=== PATIENT | female | born 1960 | race Caucasian/White ===

== ENCOUNTER 2017-09-23 09:20 | Day surgery (SDC) | payer MEDICAID ==
[~2017-09-23 09:20] MED LIST: ALUM1POW3; ARIP5TAB4 PO; BUSP15TA12 PO; CYCL-1 PO; DOCU-148; EZET10TA14 PO; FENO145T38 PO; FERR325T28 PO; GABA-532 PO; HYDR-565 PO; INSU100V12 SQ; LEVO500T2 PO; METF10002 PO; MORP60TA PO; OMEP-50 PO; OXYC-658 PO; QUET25TA PO; SERT20OR6 PO; SITA25TA3 PO
[2017-09-23] MEDS ORDERED: LIDOcaine 2% 5ml jelly ONE (09:51)
== END 2017-09-23 12:14 | disposition home or self-care (01) ==
LOC: WOUND CARE 09:20
PROVIDERS: ATTEND Surgery
DX: E11.621 Type 2 diabetes mellitus with foot ulcer (principal); L97.421 Non-pressure chronic ulcer of left heel and midfoot limited to breakdown of skin; E11.69 Type 2 diabetes mellitus with other specified complication; M86.672 Other chronic osteomyelitis, left ankle and foot; E11.40 Type 2 diabetes mellitus with diabetic neuropathy, unspecified; I10 Essential (primary) hypertension; K21.9 Gastro-esophageal reflux disease without esophagitis; E78.00 Pure hypercholesterolemia, unspecified; I77.1 Stricture of artery; M19.90 Unspecified osteoarthritis, unspecified site; F41.9 Anxiety disorder, unspecified; F32.9 Major depressive disorder, single episode, unspecified; Z90.49 Acquired absence of other specified parts of digestive tract; Z79.4 Long term (current) use of insulin; Z79.84 Long term (current) use of oral hypoglycemic drugs; Z79.899 Other long term (current) drug therapy; Z87.891 Personal history of nicotine dependence; Z95.1 Presence of aortocoronary bypass graft
CPT/HCPCS: 11042; 36416; 82948; 97605; A6446

== ENCOUNTER 2017-10-01 09:00 | Outpatient (CLI) | payer MEDICAID ==
[2017-10-01] MEDS ORDERED: RIFA600V4 PO (13:59)
== END 2017-10-01 10:27 | disposition home or self-care (01) ==
LOC: WOUND CARE 09:00 → EDSTATUS 09:00 → WOUND CARE 10:27
PROVIDERS: ATTEND Surgery
DX: E11.621 Type 2 diabetes mellitus with foot ulcer (principal); L97.421 Non-pressure chronic ulcer of left heel and midfoot limited to breakdown of skin; E11.69 Type 2 diabetes mellitus with other specified complication; M86.672 Other chronic osteomyelitis, left ankle and foot; I10 Essential (primary) hypertension; K21.9 Gastro-esophageal reflux disease without esophagitis; E78.00 Pure hypercholesterolemia, unspecified; I77.1 Stricture of artery; E11.40 Type 2 diabetes mellitus with diabetic neuropathy, unspecified; M19.90 Unspecified osteoarthritis, unspecified site; I70.244 Atherosclerosis of native arteries of left leg with ulceration of heel and midfoot; F41.9 Anxiety disorder, unspecified; F32.9 Major depressive disorder, single episode, unspecified; Z90.49 Acquired absence of other specified parts of digestive tract; Z79.84 Long term (current) use of oral hypoglycemic drugs; Z79.4 Long term (current) use of insulin; Z87.891 Personal history of nicotine dependence; Z95.1 Presence of aortocoronary bypass graft
CPT/HCPCS: 36416; 82948; 97605; A6206; A6243; A6449; 99211

== ENCOUNTER 2017-10-01 10:27 | Emergency (ER) | payer MEDICAID ==
[~2017-10-01] VITALS: Ht 182.9 cm; Wt 136.0 kg
[2017-10-01] MEDS ORDERED: HYDROcodone/acetaminophen 10/325mg tab PO ONE (11:50)
[2017-10-01 12:05] LABS: BASOPHILS % (AUTO) 0.4 % (0-1); EOSINOPHILS # (AUTO) 0.2 X10'3 (0-0.9); EOSINOPHILS % (AUTO) 2.8 % (0-6); HEMATOCRIT 32.9 % (35.0-45.0); HEMOGLOBIN 10.6 g/dl (12.0-16.0); LYMPHOCYTES % (AUTO) 18.2 % (21-51); MEAN CORPUSCULAR HGB CONC 32.3 % (33.0-36.5); MEAN CORPUSCULAR VOLUME 77.5 FL (78-98); MEAN PLATELET VOLUME 10.2 FL (7.4-10.4); MONOCYTES # (AUTO) 0.4 X10'3 (0-0.9); MONOCYTES % (AUTO) 7.1 % (2-12); NEUTROPHILS # (AUTO) 4.1 X10'3 (1.8-7.7); NEUTROPHILS % (AUTO) 71.5 % (42-75); PLATELET COUNT 146 X10'3 (140-440); RED BLOOD COUNT 4.25 X10'6 (4.20-5.60); RED CELL DISTRIBUTION WIDTH 16.3 % (11.5-14.5); WHITE BLOOD COUNT 5.7 X10'3 (4.5-11.0)
[2017-10-01 12:16] LABS: PARTIAL THROMBOPLASTIN TIME 25 SECONDS (22-32); PROTHROMBIN TIME 10.2 SECONDS (9.0-12.0)
[2017-10-01 12:29] LABS: ALANINE AMINOTRANSFERASE 12 U/L (12-78); ALBUMIN 3.1 G/DL (3.4-5.0); ALBUMIN/GLOBULIN RATIO 0.8 (1.1-1.5); ALKALINE PHOSPHATASE 82 IU/L (46-116); ANION GAP 6 (8-16); ASPARTATE AMINO TRANSFERASE 8 U/L (10-37); BILIRUBIN,TOTAL 0.3 MG/DL (0.1-1.0); BLOOD UREA NITROGEN 13 MG/DL (7-18); BUN/CREATININE RATIO 10.5 (6.6-38.0); CALCIUM 8.8 MG/DL (8.5-10.1); CHLORIDE 102 MMOL/L (99-107); CREATININE 1.24 MG/DL (0.40-0.90); GLUCOSE 87 MG/DL (70-104); MAGNESIUM 1.7 MG/DL (1.5-2.4); POTASSIUM 4.7 MMOL/L (3.5-5.1); SODIUM 139 MMOL/L (135-145); TOTAL CARBON DIOXIDE 30.6 MMOL/L (24-32); eGFR 44 ML/MIN
[2017-10-01 12:52] LABS: URINE HCG NEGATIVE (NEG)
[2017-10-01 12:53] LABS: CLARITY,URINE SLIGHTLY CLOUDY (Clear); GLUCOSE, URINE NEGATIVE (Neg); KETONES,URINE TRACE mg/dl (Neg); LEUKOCYTE ESTERASE ,URINE NEGATIVE (Neg); NITRITES, URINE NEGATIVE (Neg); OCCULT BLOOD,URINE NEGATIVE (Neg); PH,URINE 5.5 (4.8-8.0); PROTEIN,URINE NEGATIVE (Neg)
[2017-10-01 13:01] LABS: UA COLLECTION TYPE NON-SPECIFIED
[2017-10-01 13:02] LABS: COLOR,URINE DARK YELLOW (Yellow)
[2017-10-01 13:07] LABS: BACTERIA,URINE 1+ /HPF (Neg); MUCUS STRANDS MODERATE /LPF (Neg); RBC,URINE NONE SEEN /HPF (0-2); SQUAMOUS EPITHELIAL CELL,UR MODERATE /LPF (FEW); WBC,URINE 0-4 /HPF (0-4)
[2017-10-01 13:08] LABS: CAL OXALATE CRYSTALS FEW /HPF (NEGATIVE)
[2017-10-01 13:41] VITALS: BP 121/72
[2017-10-01] MEDS ORDERED: rifampin inj. 600 MG in normal saline 100ml IV soln 100 ML IV SCH (13:50)
[2017-10-01] MEDS ORDERED: normal saline 1000ml 1,000 ML IV ONE (13:50)
[2017-10-01] MEDS ORDERED: rifampin inj. 600 MG in normal saline 100ml IV soln 100 ML IV ONE (13:56)
[2017-10-01] MEDS ORDERED: RIFA600V4 PO (13:59)
== END 2017-10-01 16:13 | disposition home or self-care (01) ==
LOC: ER 10:28
DX: E11.621 Type 2 diabetes mellitus with foot ulcer (principal); L97.429 Non-pressure chronic ulcer of left heel and midfoot with unspecified severity; E78.00 Pure hypercholesterolemia, unspecified; G89.29 Other chronic pain; I10 Essential (primary) hypertension; Z88.0 Allergy status to penicillin; Z88.8 Allergy status to other drugs, medicaments and biological substances; Z79.84 Long term (current) use of oral hypoglycemic drugs; Z79.899 Other long term (current) drug therapy; Z98.84 Bariatric surgery status
CPT/HCPCS: 36415; 71045; 80053; 81001; 81025; 83605; 83735; 84145; 85025; 85610; 85730; 87040; 93005; 96365; 99285; A6449; J3490; J7030

== ENCOUNTER 2017-10-03 11:05 | Outpatient (CLI) | payer MEDICAID ==
[~2017-10-03 11:05] MED LIST changes: +RIFA600V4 PO
== END 2017-10-03 12:30 | disposition home or self-care (01) ==
LOC: WOUND CARE 11:05
PROVIDERS: ATTEND Surgery
DX: E11.622 Type 2 diabetes mellitus with other skin ulcer (principal); L97.421 Non-pressure chronic ulcer of left heel and midfoot limited to breakdown of skin; I10 Essential (primary) hypertension; K21.9 Gastro-esophageal reflux disease without esophagitis; E11.69 Type 2 diabetes mellitus with other specified complication; M86.672 Other chronic osteomyelitis, left ankle and foot; E78.00 Pure hypercholesterolemia, unspecified; I77.1 Stricture of artery; E11.40 Type 2 diabetes mellitus with diabetic neuropathy, unspecified; M19.90 Unspecified osteoarthritis, unspecified site; F41.9 Anxiety disorder, unspecified; F32.9 Major depressive disorder, single episode, unspecified; Z79.4 Long term (current) use of insulin; Z79.84 Long term (current) use of oral hypoglycemic drugs; Z79.899 Other long term (current) drug therapy; Z90.49 Acquired absence of other specified parts of digestive tract; Z87.891 Personal history of nicotine dependence; Z95.1 Presence of aortocoronary bypass graft
CPT/HCPCS: 36416; 82948; 97605; A6206

== ENCOUNTER 2017-10-06 09:19 | Day surgery (SDC) | payer MEDICAID ==
[2017-10-06] MEDS ORDERED: LIDOcaine 2% 5ml jelly ONE (09:57)
== END 2017-10-06 10:56 | disposition home or self-care (01) ==
LOC: WOUND CARE 09:19
PROVIDERS: ATTEND Surgery
DX: E11.621 Type 2 diabetes mellitus with foot ulcer (principal); L97.421 Non-pressure chronic ulcer of left heel and midfoot limited to breakdown of skin; E11.69 Type 2 diabetes mellitus with other specified complication; M86.672 Other chronic osteomyelitis, left ankle and foot; E11.40 Type 2 diabetes mellitus with diabetic neuropathy, unspecified; I10 Essential (primary) hypertension; K21.9 Gastro-esophageal reflux disease without esophagitis; E78.00 Pure hypercholesterolemia, unspecified; I77.1 Stricture of artery; M19.90 Unspecified osteoarthritis, unspecified site; F41.9 Anxiety disorder, unspecified; F32.9 Major depressive disorder, single episode, unspecified; Z90.49 Acquired absence of other specified parts of digestive tract; Z79.84 Long term (current) use of oral hypoglycemic drugs; Z79.4 Long term (current) use of insulin; Z79.899 Other long term (current) drug therapy; Z87.891 Personal history of nicotine dependence; Z95.1 Presence of aortocoronary bypass graft
CPT/HCPCS: 36416; 82948; 97597; 97598; A6206

== ENCOUNTER 2017-10-13 08:43 | Day surgery (SDC) | payer MEDICAID ==
[~2017-10-13 08:43] MED LIST changes: -RIFA600V4 PO
[2017-10-13] MEDS ORDERED: LIDOcaine 2% 5ml jelly ONE (09:54)
== END 2017-10-13 11:38 | disposition home or self-care (01) ==
LOC: WOUND CARE 08:43
PROVIDERS: ATTEND Surgery
DX: E11.621 Type 2 diabetes mellitus with foot ulcer (principal); L97.421 Non-pressure chronic ulcer of left heel and midfoot limited to breakdown of skin; E11.69 Type 2 diabetes mellitus with other specified complication; M86.672 Other chronic osteomyelitis, left ankle and foot; E11.40 Type 2 diabetes mellitus with diabetic neuropathy, unspecified; I10 Essential (primary) hypertension; K21.9 Gastro-esophageal reflux disease without esophagitis; E78.00 Pure hypercholesterolemia, unspecified; I77.1 Stricture of artery; M19.90 Unspecified osteoarthritis, unspecified site; F41.9 Anxiety disorder, unspecified; F32.9 Major depressive disorder, single episode, unspecified; Z90.49 Acquired absence of other specified parts of digestive tract; Z79.4 Long term (current) use of insulin; Z79.84 Long term (current) use of oral hypoglycemic drugs; Z79.899 Other long term (current) drug therapy; Z87.891 Personal history of nicotine dependence; Z95.1 Presence of aortocoronary bypass graft
CPT/HCPCS: 11042; 11045; 36416; 82948; 87070; 87075; 87102; 97605; A6446; 87077

== ENCOUNTER 2017-10-20 09:10 | Day surgery (SDC) | payer MEDICAID ==
[2017-10-20] MEDS ORDERED: LIDOcaine 2% 5ml jelly ONE (10:07)
== END 2017-10-20 11:17 | disposition home or self-care (01) ==
LOC: WOUND CARE 09:10
PROVIDERS: ATTEND Surgery
DX: E11.621 Type 2 diabetes mellitus with foot ulcer (principal); L97.421 Non-pressure chronic ulcer of left heel and midfoot limited to breakdown of skin; E11.69 Type 2 diabetes mellitus with other specified complication; M86.672 Other chronic osteomyelitis, left ankle and foot; I10 Essential (primary) hypertension; K21.9 Gastro-esophageal reflux disease without esophagitis; E78.00 Pure hypercholesterolemia, unspecified; I77.1 Stricture of artery; E11.40 Type 2 diabetes mellitus with diabetic neuropathy, unspecified; M19.90 Unspecified osteoarthritis, unspecified site; F41.9 Anxiety disorder, unspecified; F32.9 Major depressive disorder, single episode, unspecified; Z90.49 Acquired absence of other specified parts of digestive tract; Z79.84 Long term (current) use of oral hypoglycemic drugs; Z79.4 Long term (current) use of insulin; Z79.899 Other long term (current) drug therapy; Z87.891 Personal history of nicotine dependence; Z95.1 Presence of aortocoronary bypass graft
CPT/HCPCS: 11045; 82948; 97605

== ENCOUNTER 2017-10-27 09:30 | Day surgery (SDC) | payer MEDICAID ==
[2017-10-27] MEDS ORDERED: LINE600T36 PO (16:14)
== END 2017-10-27 12:40 | disposition home or self-care (01) ==
LOC: WOUND CARE 09:30
PROVIDERS: ATTEND Surgery
DX: E11.621 Type 2 diabetes mellitus with foot ulcer (principal); L97.421 Non-pressure chronic ulcer of left heel and midfoot limited to breakdown of skin; E11.69 Type 2 diabetes mellitus with other specified complication; M86.672 Other chronic osteomyelitis, left ankle and foot; I10 Essential (primary) hypertension; K21.9 Gastro-esophageal reflux disease without esophagitis; E78.00 Pure hypercholesterolemia, unspecified; I77.1 Stricture of artery; E11.40 Type 2 diabetes mellitus with diabetic neuropathy, unspecified; M19.90 Unspecified osteoarthritis, unspecified site; F41.9 Anxiety disorder, unspecified; F32.9 Major depressive disorder, single episode, unspecified; Z90.49 Acquired absence of other specified parts of digestive tract; Z79.4 Long term (current) use of insulin; Z79.84 Long term (current) use of oral hypoglycemic drugs; Z79.899 Other long term (current) drug therapy; Z87.891 Personal history of nicotine dependence; Z95.1 Presence of aortocoronary bypass graft
CPT/HCPCS: 11042; 11045; 36416; 82948; A6446

== ENCOUNTER 2017-11-03 08:55 | Day surgery (SDC) | payer MEDICAID ==
[~2017-11-03 08:55] MED LIST changes: +LINE600T36 PO
[2017-11-03] MEDS ORDERED: LIDOcaine 2% 5ml jelly ONE (09:58)
== END 2017-11-03 11:10 | disposition home or self-care (01) ==
LOC: WOUND CARE 08:55
PROVIDERS: ATTEND Surgery
DX: E11.621 Type 2 diabetes mellitus with foot ulcer (principal); L97.421 Non-pressure chronic ulcer of left heel and midfoot limited to breakdown of skin; E11.69 Type 2 diabetes mellitus with other specified complication; M86.672 Other chronic osteomyelitis, left ankle and foot; I10 Essential (primary) hypertension; K21.9 Gastro-esophageal reflux disease without esophagitis; E78.00 Pure hypercholesterolemia, unspecified; I77.1 Stricture of artery; E11.40 Type 2 diabetes mellitus with diabetic neuropathy, unspecified; M19.90 Unspecified osteoarthritis, unspecified site; F41.9 Anxiety disorder, unspecified; F32.9 Major depressive disorder, single episode, unspecified; Z79.899 Other long term (current) drug therapy; Z90.49 Acquired absence of other specified parts of digestive tract; Z79.4 Long term (current) use of insulin; Z87.891 Personal history of nicotine dependence; Z95.1 Presence of aortocoronary bypass graft
CPT/HCPCS: 36416; 82948; 97605

== ENCOUNTER 2017-11-10 09:00 | Day surgery (SDC) | payer MEDICAID ==
[2017-11-10] MEDS ORDERED: LIDOcaine 2% 5ml jelly ONE (10:11)
== END 2017-11-10 11:38 | disposition home or self-care (01) ==
LOC: WOUND CARE 09:00
PROVIDERS: ATTEND Surgery
DX: E11.621 Type 2 diabetes mellitus with foot ulcer (principal); L97.421 Non-pressure chronic ulcer of left heel and midfoot limited to breakdown of skin; E11.69 Type 2 diabetes mellitus with other specified complication; M86.672 Other chronic osteomyelitis, left ankle and foot; I10 Essential (primary) hypertension; K21.9 Gastro-esophageal reflux disease without esophagitis; E78.00 Pure hypercholesterolemia, unspecified; I77.1 Stricture of artery; E11.40 Type 2 diabetes mellitus with diabetic neuropathy, unspecified; M19.90 Unspecified osteoarthritis, unspecified site; F41.9 Anxiety disorder, unspecified; F32.9 Major depressive disorder, single episode, unspecified; Z79.899 Other long term (current) drug therapy; Z90.49 Acquired absence of other specified parts of digestive tract; Z79.4 Long term (current) use of insulin; Z87.891 Personal history of nicotine dependence; Z95.1 Presence of aortocoronary bypass graft
CPT/HCPCS: 11042; 36416; 82948; 97605; A6446; A4456

== ENCOUNTER 2017-11-17 09:15 | Day surgery (SDC) | payer MEDICAID ==
[2017-11-17] MEDS ORDERED: LIDOcaine 2% 5ml jelly ONE (11:28)
[2017-11-17 12:08] LABS: HEMOGLOBIN A1C 6.3 % (4.5-6.2)
[2017-11-17 12:14] LABS: ALANINE AMINOTRANSFERASE 20 U/L (12-78); ALBUMIN 3.3 G/DL (3.4-5.0); ALBUMIN/GLOBULIN RATIO 0.9 (1.1-1.5); ALKALINE PHOSPHATASE 69 IU/L (46-116); ANION GAP 4 (8-16); ASPARTATE AMINO TRANSFERASE 22 U/L (10-37); BILIRUBIN,TOTAL 0.4 MG/DL (0.1-1.0); BLOOD UREA NITROGEN 14 MG/DL (7-18); BUN/CREATININE RATIO 13.2 (6.6-38.0); CALCIUM 8.6 MG/DL (8.5-10.1); CHLORIDE 105 MMOL/L (99-107); CREATININE 1.06 MG/DL (0.40-0.90); GLUCOSE 102 MG/DL (70-104); POTASSIUM 5.1 MMOL/L (3.5-5.1); SODIUM 141 MMOL/L (135-145); TOTAL CARBON DIOXIDE 32.1 MMOL/L (24-32); TOTAL PROTEIN 6.8 G/DL (6.4-8.2); eGFR 53 ML/MIN
[2017-11-17 12:54] LABS: BASOPHILS % (AUTO) 0.4 % (0-1); EOSINOPHILS # (AUTO) 0.1 X10'3 (0-0.9); EOSINOPHILS % (AUTO) 2.7 % (0-6); HEMATOCRIT 29.7 % (35.0-45.0); HEMOGLOBIN 9.9 g/dl (12.0-16.0); LYMPHOCYTES # (AUTO) 1.3 X10'3 (1.1-4.8); MEAN CORPUSCULAR HEMOGLOBIN 25.5 PG (27.0-31.0); MEAN CORPUSCULAR HGB CONC 33.3 % (33.0-36.5); MEAN CORPUSCULAR VOLUME 76.7 FL (78-98); MONOCYTES # (AUTO) 0.6 X10'3 (0-0.9); MONOCYTES % (AUTO) 11.8 % (2-12); NEUTROPHILS # (AUTO) 2.8 X10'3 (1.8-7.7); NEUTROPHILS % (AUTO) 57.1 % (42-75); PLATELET COUNT 64 X10'3 (140-440); RED BLOOD COUNT 3.88 X10'6 (4.20-5.60); RED CELL DISTRIBUTION WIDTH 16.2 % (11.5-14.5); WHITE BLOOD COUNT 4.8 X10'3 (4.5-11.0)
== END 2017-11-17 12:48 | disposition home or self-care (01) ==
LOC: WOUND CARE 09:15
PROVIDERS: ATTEND Surgery
DX: E11.621 Type 2 diabetes mellitus with foot ulcer (principal); L97.421 Non-pressure chronic ulcer of left heel and midfoot limited to breakdown of skin; E11.69 Type 2 diabetes mellitus with other specified complication; M86.672 Other chronic osteomyelitis, left ankle and foot; I10 Essential (primary) hypertension; K21.9 Gastro-esophageal reflux disease without esophagitis; E78.00 Pure hypercholesterolemia, unspecified; I77.1 Stricture of artery; E11.40 Type 2 diabetes mellitus with diabetic neuropathy, unspecified; M19.90 Unspecified osteoarthritis, unspecified site; F41.9 Anxiety disorder, unspecified; F32.9 Major depressive disorder, single episode, unspecified; Z79.899 Other long term (current) drug therapy; Z90.49 Acquired absence of other specified parts of digestive tract; Z79.4 Long term (current) use of insulin; Z87.891 Personal history of nicotine dependence; Z95.1 Presence of aortocoronary bypass graft
CPT/HCPCS: 15275; 15276; 36415; 36416; 80053; 82948; 83036; 85025; A6206; A6209; A6223; A6446; Q4106; A6250

== ENCOUNTER 2017-11-21 08:49 | Outpatient (CLI) | payer MEDICAID ==
[~2017-11-21 08:49] MED LIST changes: -LEVO500T2 PO
== END 2017-11-21 11:00 | disposition home or self-care (01) ==
LOC: WOUND CARE 08:49 → EDSTATUS 09:00 → WOUND CARE 11:00
PROVIDERS: ATTEND Surgery
DX: E11.621 Type 2 diabetes mellitus with foot ulcer (principal); L97.421 Non-pressure chronic ulcer of left heel and midfoot limited to breakdown of skin; E11.69 Type 2 diabetes mellitus with other specified complication; M86.672 Other chronic osteomyelitis, left ankle and foot; I10 Essential (primary) hypertension; K21.9 Gastro-esophageal reflux disease without esophagitis; E78.00 Pure hypercholesterolemia, unspecified; I77.1 Stricture of artery; E11.40 Type 2 diabetes mellitus with diabetic neuropathy, unspecified; M19.90 Unspecified osteoarthritis, unspecified site; F41.9 Anxiety disorder, unspecified; F32.9 Major depressive disorder, single episode, unspecified; Z79.899 Other long term (current) drug therapy; Z90.49 Acquired absence of other specified parts of digestive tract; Z79.4 Long term (current) use of insulin; Z87.891 Personal history of nicotine dependence; Z95.1 Presence of aortocoronary bypass graft
CPT/HCPCS: 36416; 82948; 97605; A6446

== ENCOUNTER 2017-11-24 08:47 | Day surgery (SDC) | payer MEDICAID ==
[2017-11-24] MEDS ORDERED: LIDOcaine 2% 5ml jelly ONE (09:52)
== END 2017-11-24 12:00 | disposition home or self-care (01) ==
LOC: WOUND CARE 08:47
PROVIDERS: ATTEND Surgery
DX: E11.621 Type 2 diabetes mellitus with foot ulcer (principal); L97.421 Non-pressure chronic ulcer of left heel and midfoot limited to breakdown of skin; E11.69 Type 2 diabetes mellitus with other specified complication; M86.672 Other chronic osteomyelitis, left ankle and foot; I10 Essential (primary) hypertension; K21.9 Gastro-esophageal reflux disease without esophagitis; E78.00 Pure hypercholesterolemia, unspecified; I77.1 Stricture of artery; E11.40 Type 2 diabetes mellitus with diabetic neuropathy, unspecified; M19.90 Unspecified osteoarthritis, unspecified site; F41.9 Anxiety disorder, unspecified; F32.9 Major depressive disorder, single episode, unspecified; Z79.899 Other long term (current) drug therapy; Z90.49 Acquired absence of other specified parts of digestive tract; Z79.4 Long term (current) use of insulin; Z87.891 Personal history of nicotine dependence; Z95.1 Presence of aortocoronary bypass graft
CPT/HCPCS: 10061; 36416; 82948; 87070; 87075; 87077; 87102; 87186; A6266; A6446

== ENCOUNTER 2017-12-01 09:09 | Outpatient (CLI) | payer MEDICAID ==
[2017-12-01] MEDS ORDERED: gadopentetate dimeglumine 7.5 MMOL/15 ML syringe ONE (10:59)
== END 2017-12-01 23:59 | disposition home or self-care (01) ==
LOC: RAD 09:09
PROVIDERS: ATTEND Internal Medicine
DX: L97.429 Non-pressure chronic ulcer of left heel and midfoot with unspecified severity (principal); M86.9 Osteomyelitis, unspecified; M79.605 Pain in left leg; R59.0 Localized enlarged lymph nodes
CPT/HCPCS: 73718; 93926; A9579

== ENCOUNTER 2018-04-28 18:37 | Emergency (ER) | payer MEDICAID ==
[~2018-04-28] VITALS: Ht 182.9 cm; Wt 115.9 kg
[~2018-04-28 18:37] MED LIST changes: -METF10002 PO; +METF10004 PO
[2018-04-28 20:07] VITALS: BP 198/89
== END 2018-04-28 20:09 | disposition home or self-care (01) ==
LOC: ER 18:38
DX: R19.7 Diarrhea, unspecified (principal); R11.0 Nausea; I10 Essential (primary) hypertension; E11.9 Type 2 diabetes mellitus without complications; G89.29 Other chronic pain; E78.00 Pure hypercholesterolemia, unspecified; M19.90 Unspecified osteoarthritis, unspecified site; Z88.1 Allergy status to other antibiotic agents; Z88.0 Allergy status to penicillin; Z88.6 Allergy status to analgesic agent; Z79.4 Long term (current) use of insulin; Z79.84 Long term (current) use of oral hypoglycemic drugs; Z79.899 Other long term (current) drug therapy
CPT/HCPCS: 99281

== ENCOUNTER 2019-02-22 13:59 | Emergency (ER) | payer MEDICAID ==
[~2019-02-22] VITALS: Ht 182.9 cm; Wt 147.7 kg
[~2019-02-22 13:59] MED LIST changes: +HYDR-4353 PO; -HYDR-565 PO; +METF-438 PO; -METF10004 PO
[2019-02-22 14:15] VITALS: BP 171/80
[2019-02-22 15:01] LABS: BASOPHILS # (AUTO) 0.1 X10'3 (0-0.2); BASOPHILS % (AUTO) 0.7 % (0-1); EOSINOPHILS # (AUTO) 0.1 X10'3 (0-0.9); EOSINOPHILS % (AUTO) 1.6 % (0-6); HEMATOCRIT 39.5 % (35.0-45.0); HEMOGLOBIN 13.1 g/dl (12.0-16.0); LYMPHOCYTES # (AUTO) 1.6 X10'3 (1.1-4.8); MEAN CORPUSCULAR HEMOGLOBIN 25.4 PG (27.0-31.0); MEAN PLATELET VOLUME 8.6 FL (7.4-10.4); MONOCYTES # (AUTO) 0.4 X10'3 (0-0.9); MONOCYTES % (AUTO) 6.1 % (2-12); NEUTROPHILS # (AUTO) 4.9 X10'3 (1.8-7.7); NEUTROPHILS % (AUTO) 68.6 % (42-75); PLATELET COUNT 174 X10'3 (140-440); RED BLOOD COUNT 5.13 X10'6 (4.20-5.60); RED CELL DISTRIBUTION WIDTH 15.4 % (11.5-14.5); WHITE BLOOD COUNT 7.1 X10'3 (4.5-11.0)
[2019-02-22 15:12] LABS: URINE HCG NEGATIVE (NEG)
[2019-02-22 15:13] LABS: CLARITY,URINE CLEAR (Clear); COLOR,URINE YELLOW (Yellow); GLUCOSE, URINE NEGATIVE (Neg); KETONES,URINE NEGATIVE (Neg); LEUKOCYTE ESTERASE ,URINE SMALL (Neg); NITRITES, URINE POSITIVE (Neg); OCCULT BLOOD,URINE NEGATIVE (Neg); PROTEIN,URINE NEGATIVE (Neg); UROBILINOGEN,URINE 0.2 E.U/dL (0.2-1.0)
[2019-02-22 15:13] LABS: ALANINE AMINOTRANSFERASE 24 U/L (12-78); ALBUMIN 3.6 G/DL (3.4-5.0); ALBUMIN/GLOBULIN RATIO 0.9 (1.1-1.5); ALKALINE PHOSPHATASE 111 IU/L (46-116); ANION GAP 8 (8-16); ASPARTATE AMINO TRANSFERASE 15 U/L (10-37); BILIRUBIN,TOTAL 0.4 MG/DL (0.1-1.0); BLOOD UREA NITROGEN 13 MG/DL (7-18); BUN/CREATININE RATIO 13.8 (6.6-38.0); CHLORIDE 98 MMOL/L (99-107); CREATININE 0.94 MG/DL (0.40-0.90); GLUCOSE 95 MG/DL (70-104); POTASSIUM 4.3 MMOL/L (3.5-5.1); SODIUM 131 MMOL/L (135-145); TOTAL PROTEIN 7.4 G/DL (6.4-8.2); eGFR 61 ML/MIN
[2019-02-22 15:19] LABS: UA COLLECTION TYPE CLN CATCH MIDSTREAM
[2019-02-22 15:24] LABS: BACTERIA,URINE FEW /HPF (Neg); MUCUS STRANDS NONE SEEN /LPF (Neg); RBC,URINE NONE SEEN /HPF (0-2); RENAL CELLS, URINE FEW /HPF; SQUAMOUS EPITHELIAL CELL,UR FEW /LPF (FEW)
[2019-02-22] MEDS ORDERED: SULF1TAB49 PO (15:35)
== END 2019-02-22 15:46 | disposition home or self-care (01) ==
LOC: ER 13:59
DX: N39.0 Urinary tract infection, site not specified (principal); E78.00 Pure hypercholesterolemia, unspecified; I10 Essential (primary) hypertension; E11.9 Type 2 diabetes mellitus without complications; M19.90 Unspecified osteoarthritis, unspecified site; G89.29 Other chronic pain; Z88.0 Allergy status to penicillin; Z88.8 Allergy status to other drugs, medicaments and biological substances; Z79.4 Long term (current) use of insulin; Z79.84 Long term (current) use of oral hypoglycemic drugs; Z79.899 Other long term (current) drug therapy
CPT/HCPCS: 36415; 80053; 81001; 81025; 85025; 87088; 99284

== ENCOUNTER 2019-08-12 09:35 | Day surgery (SDC) | payer MEDICAID ==
[~2019-08-12 09:35] MED LIST changes: +ARIP5TAB14 PO; -ARIP5TAB4 PO; -BUSP15TA12 PO; +BUSP15TA7 PO; -EZET10TA14 PO; +EZET10TA21 PO; +LINE600T12 PO; -LINE600T36 PO
[2019-08-12] MEDS ORDERED: LIDOcaine 2% 5ml jelly ONE (10:04)
== END 2019-08-12 11:12 | disposition home or self-care (01) ==
LOC: WOUND CARE 09:35
PROVIDERS: ATTEND Surgery
DX: T87.89 Other complications of amputation stump (principal); E11.621 Type 2 diabetes mellitus with foot ulcer; L89.892 Pressure ulcer of other site, stage 2; L97.821 Non-pressure chronic ulcer of other part of left lower leg limited to breakdown of skin; E11.69 Type 2 diabetes mellitus with other specified complication; M86.672 Other chronic osteomyelitis, left ankle and foot; E11.40 Type 2 diabetes mellitus with diabetic neuropathy, unspecified; I10 Essential (primary) hypertension; K21.9 Gastro-esophageal reflux disease without esophagitis; E78.00 Pure hypercholesterolemia, unspecified; I77.1 Stricture of artery; M19.90 Unspecified osteoarthritis, unspecified site; F41.9 Anxiety disorder, unspecified; F32.9 Major depressive disorder, single episode, unspecified; Z79.899 Other long term (current) drug therapy; Z90.49 Acquired absence of other specified parts of digestive tract; Z79.4 Long term (current) use of insulin; Z87.891 Personal history of nicotine dependence; Z95.1 Presence of aortocoronary bypass graft
CPT/HCPCS: 36416; 82948; 97597; A6021; A6154; A6212

== ENCOUNTER 2019-08-19 09:40 | Outpatient (CLI) | payer MEDICAID ==
[2019-08-19] MEDS ORDERED: LIDOcaine 2% 5ml jelly ONE (10:53)
== END 2019-08-19 11:17 | disposition home or self-care (01) ==
LOC: WOUND CARE 09:40 → EDSTATUS 10:00 → WOUND CARE 11:17
PROVIDERS: ATTEND Surgery
DX: T87.89 Other complications of amputation stump (principal); E11.621 Type 2 diabetes mellitus with foot ulcer; L89.892 Pressure ulcer of other site, stage 2; L97.821 Non-pressure chronic ulcer of other part of left lower leg limited to breakdown of skin; E11.69 Type 2 diabetes mellitus with other specified complication; M86.672 Other chronic osteomyelitis, left ankle and foot; E11.40 Type 2 diabetes mellitus with diabetic neuropathy, unspecified; I10 Essential (primary) hypertension; K21.9 Gastro-esophageal reflux disease without esophagitis; E78.00 Pure hypercholesterolemia, unspecified; I77.1 Stricture of artery; M19.90 Unspecified osteoarthritis, unspecified site; F41.9 Anxiety disorder, unspecified; F32.9 Major depressive disorder, single episode, unspecified; Z79.899 Other long term (current) drug therapy; Z90.49 Acquired absence of other specified parts of digestive tract; Z79.4 Long term (current) use of insulin; Z87.891 Personal history of nicotine dependence; Z95.1 Presence of aortocoronary bypass graft; Y83.5 Amputation of limb(s) as the cause of abnormal reaction of the patient, or of later complication, without mention of misadventure at the time of the procedure
CPT/HCPCS: 36416; 82948; G0463; A4663; A6021; A6154; A6212

== ENCOUNTER 2019-08-31 16:56 | Emergency (ER) | payer MEDICAID ==
[~2019-08-31] VITALS: Ht 182.9 cm; Wt 159.0 kg
[2019-08-31] MEDS ORDERED: HYDROcodone/acetaminophen 10/325mg tab PO ONE (17:05)
[2019-08-31] MEDS ORDERED: ketorolac trometh. 30mg/ml inj. IM ONE (17:05)
--- NOTE | 2019-08-31 17:13 | NUR ---
patient to ct. Addendum: 08/31/19 at 1714 by ASTEVENSON to xray.
[2019-08-31] MEDS ORDERED: ORPH100T2 PO (19:29)
[2019-08-31] MEDS ORDERED: HYDR-4353 PO (19:29)
[2019-08-31] MEDS ORDERED: orphenadrine citrate 60mg/2ml inj. IM ONE (19:30)
[2019-08-31 19:43] VITALS: BP 160/65
== END 2019-08-31 19:46 | disposition home or self-care (01) ==
LOC: ER 16:57
DX: S39.012A Strain of muscle, fascia and tendon of lower back, initial encounter (principal); S70.01XA Contusion of right hip, initial encounter; E78.00 Pure hypercholesterolemia, unspecified; I10 Essential (primary) hypertension; E11.9 Type 2 diabetes mellitus without complications; M19.90 Unspecified osteoarthritis, unspecified site; G89.29 Other chronic pain; Z98.890 Other specified postprocedural states; Z88.1 Allergy status to other antibiotic agents; Z88.0 Allergy status to penicillin; Z79.4 Long term (current) use of insulin; Z79.899 Other long term (current) drug therapy; W18.39XA Other fall on same level, initial encounter; Y93.89 Activity, other specified; Y92.098 Other place in other non-institutional residence as the place of occurrence of the external cause; Y99.8 Other external cause status
CPT/HCPCS: 72100; 73502; 73700; 96372; 99284; J1885; J2360; 73200; 74177

== ENCOUNTER 2019-10-31 14:27 | Emergency (ER) | payer MEDICAID ==
[~2019-10-31] VITALS: Ht 182.9 cm; Wt 159.1 kg
[~2019-10-31 14:27] MED LIST changes: -EZET10TA21 PO; +EZET10TA6 PO; +ORPH100T2 PO
[2019-10-31] MEDS ORDERED: INSU100I31 SQ (15:00)
[2019-10-31] MEDS ORDERED: vancomycin/NS 1 GM ADD-VANTAGE 250 ML IV ONE (15:55)
[2019-10-31 16:04] LABS: BASOPHILS % (AUTO) 0.7 % (0-1); EOSINOPHILS # (AUTO) 0.1 X10'3 (0-0.9); EOSINOPHILS % (AUTO) 2.6 % (0-6); HEMATOCRIT 36.9 % (35.0-45.0); HEMOGLOBIN 12.5 g/dl (12.0-16.0); LYMPHOCYTES # (AUTO) 0.7 X10'3 (1.1-4.8); LYMPHOCYTES % (AUTO) 13.4 % (21-51); MEAN CORPUSCULAR HGB CONC 33.9 g/dL (33.0-36.5); MEAN CORPUSCULAR VOLUME 79.4 FL (78-98); MEAN PLATELET VOLUME 8.7 FL (7.4-10.4); MONOCYTES # (AUTO) 0.3 X10'3 (0-0.9); MONOCYTES % (AUTO) 5.6 % (2-12); NEUTROPHILS # (AUTO) 4.3 X10'3 (1.8-7.7); NEUTROPHILS % (AUTO) 77.7 % (42-75); PLATELET COUNT 165 X10'3 (140-440); RED BLOOD COUNT 4.64 X10'6 (4.20-5.60); RED CELL DISTRIBUTION WIDTH 14.7 % (11.5-14.5); WHITE BLOOD COUNT 5.6 X10'3 (4.5-11.0)
[2019-10-31 16:25] LABS: ALANINE AMINOTRANSFERASE 21 U/L (12-78); ALBUMIN 3.1 G/DL (3.4-5.0); ALBUMIN/GLOBULIN RATIO 0.8 (1.1-1.5); ALKALINE PHOSPHATASE 126 IU/L (46-116); ANION GAP 9 (8-16); ASPARTATE AMINO TRANSFERASE 16 U/L (10-37); BILIRUBIN,TOTAL 0.3 MG/DL (0.1-1.0); BLOOD UREA NITROGEN 11 MG/DL (7-18); BUN/CREATININE RATIO 11.3 (6.6-38.0); CALCIUM 8.5 MG/DL (8.5-10.1); CHLORIDE 104 MMOL/L (99-107); CREATININE 0.97 MG/DL (0.40-0.90); POTASSIUM 4.2 MMOL/L (3.5-5.1); SODIUM 140 MMOL/L (135-145); TOTAL CARBON DIOXIDE 27.2 MMOL/L (24-32); eGFR 59 ML/MIN
[2019-10-31 16:26] LABS: GLUCOSE 130 MG/DL (70-104)
[2019-10-31] MEDS ORDERED: CEPH500C5 PO (16:58)
[2019-10-31] MEDS ORDERED: SULF1TAB49 PO (16:58)
[2019-10-31 17:07] VITALS: BP 119/67
== END 2019-10-31 17:14 | disposition home or self-care (01) ==
LOC: ER 14:28
DX: L03.031 Cellulitis of right toe (principal); E78.00 Pure hypercholesterolemia, unspecified; I10 Essential (primary) hypertension; E11.9 Type 2 diabetes mellitus without complications; M19.90 Unspecified osteoarthritis, unspecified site; G89.29 Other chronic pain; Z89.512 Acquired absence of left leg below knee; Z98.84 Bariatric surgery status; Z88.8 Allergy status to other drugs, medicaments and biological substances; Z88.0 Allergy status to penicillin; Z88.6 Allergy status to analgesic agent; Z79.899 Other long term (current) drug therapy; Z79.4 Long term (current) use of insulin
CPT/HCPCS: 36415; 73660; 80053; 85025; 99284

== ENCOUNTER 2019-12-03 08:56 | Day surgery (SDC) | payer MEDICAID ==
[~2019-12-03 08:56] MED LIST changes: -CYCL-1 PO; -DOCU-148; -FERR325T28 PO; -HYDR-4353 PO; +INSU100I31 SQ; -INSU100V12 SQ; -LINE600T12 PO; -MORP60TA PO; -ORPH100T2 PO; -OXYC-658 PO; -QUET25TA PO; -SERT20OR6 PO; -SITA25TA3 PO
[2019-12-03] MEDS ORDERED: LIDOcaine 2% 5ml jelly ONE (09:34)
== END 2019-12-03 10:43 | disposition home or self-care (01) ==
LOC: WOUND CARE 08:56
PROVIDERS: ATTEND Surgery
DX: E11.621 Type 2 diabetes mellitus with foot ulcer (principal); L97.512 Non-pressure chronic ulcer of other part of right foot with fat layer exposed; E11.69 Type 2 diabetes mellitus with other specified complication; M86.672 Other chronic osteomyelitis, left ankle and foot; E11.40 Type 2 diabetes mellitus with diabetic neuropathy, unspecified; I10 Essential (primary) hypertension; K21.9 Gastro-esophageal reflux disease without esophagitis; E78.00 Pure hypercholesterolemia, unspecified; I77.1 Stricture of artery; M19.90 Unspecified osteoarthritis, unspecified site; F41.9 Anxiety disorder, unspecified; F32.9 Major depressive disorder, single episode, unspecified; Z79.899 Other long term (current) drug therapy; Z90.49 Acquired absence of other specified parts of digestive tract; Z79.4 Long term (current) use of insulin; Z87.891 Personal history of nicotine dependence; Z95.1 Presence of aortocoronary bypass graft; Z85.3 Personal history of malignant neoplasm of breast; Z86.14 Personal history of Methicillin resistant Staphylococcus aureus infection
CPT/HCPCS: 11042; 36416; 82948; A4663; A6154

== ENCOUNTER 2021-01-12 10:45 | Emergency (ER) | payer MEDICAID ==
[~2021-01-12] VITALS: Ht 182.9 cm; Wt 170.4 kg
[2021-01-12] MEDS ORDERED: normal saline 1000ML IV soln IV ONE (13:05)
[2021-01-12 13:58] LABS: BASOPHILS % (AUTO) 0.6 % (0-1); EOSINOPHILS # (AUTO) 0.1 X10'3 (0-0.9); EOSINOPHILS % (AUTO) 1.9 % (0-6); HEMATOCRIT 35.6 % (35.0-45.0); HEMOGLOBIN 11.7 g/dl (12.0-16.0); LYMPHOCYTES # (AUTO) 0.8 X10'3 (1.1-4.8); LYMPHOCYTES % (AUTO) 14.5 % (21-51); MEAN CORPUSCULAR HEMOGLOBIN 26.4 PG (27.0-31.0); MEAN CORPUSCULAR HGB CONC 32.7 g/dL (33.0-36.5); MEAN CORPUSCULAR VOLUME 80.8 FL (78-98); MEAN PLATELET VOLUME 9.6 FL (7.4-10.4); MONOCYTES # (AUTO) 0.4 X10'3 (0-0.9); MONOCYTES % (AUTO) 6.8 % (2-12); NEUTROPHILS # (AUTO) 4.3 X10'3 (1.8-7.7); NEUTROPHILS % (AUTO) 76.2 % (42-75); PLATELET COUNT 137 X10'3 (140-440); RED BLOOD COUNT 4.41 X10'6 (4.20-5.60); RED CELL DISTRIBUTION WIDTH 14.8 % (11.5-14.5); WHITE BLOOD COUNT 5.6 X10'3 (4.5-11.0)
[2021-01-12 14:07] LABS: ALANINE AMINOTRANSFERASE 16 U/L (12-78); ALBUMIN 3.2 G/DL (3.4-5.0); ALBUMIN/GLOBULIN RATIO 0.9 (1.1-1.5); ALKALINE PHOSPHATASE 88 IU/L (46-116); ANION GAP 6 (8-16); ASPARTATE AMINO TRANSFERASE 15 U/L (10-37); BILIRUBIN,TOTAL 0.3 MG/DL (0.1-1.0); BLOOD UREA NITROGEN 14 MG/DL (7-18); CALCIUM 8.7 MG/DL (8.5-10.1); CHLORIDE 102 MMOL/L (99-107); CREATININE 1.08 MG/DL (0.40-0.90); GLUCOSE 143 MG/DL (70-104); POTASSIUM 4.4 MMOL/L (3.5-5.1); SODIUM 138 MMOL/L (135-145); TOTAL CARBON DIOXIDE 29.6 MMOL/L (24-32); TOTAL PROTEIN 6.8 G/DL (6.4-8.2); eGFR 52 ML/MIN
[2021-01-12] MEDS ORDERED: iohexol 350MG/ML 100ml bottle IV ONE (15:06)
[2021-01-12] MEDS ORDERED: MESSAGE TO NURSING PO SCH (16:00)
[2021-01-12 16:02] VITALS: BP 120/58
[2021-01-12] MEDS ORDERED: CIPR-202 PO (16:20)
--- NOTE | 2021-01-12 16:41 | NUR ---
GRICEL MCKENZIE SPOKE TO ICU MD DR COLON
--- NOTE | 2021-01-12 16:51 | NUR ---
1611 PREVIOUS NOTE AND CLIP FORM NOT APPLICABLE TO THIS PATIENT
[2021-01-12 16:55] LABS: CLARITY,URINE CLEAR (Clear); COLOR,URINE STRAW (Yellow); GLUCOSE, URINE NEGATIVE (Neg); KETONES,URINE NEGATIVE (Neg); LEUKOCYTE ESTERASE ,URINE NEGATIVE (Neg); NITRITES, URINE NEGATIVE (Neg); OCCULT BLOOD,URINE NEGATIVE (Neg); PROTEIN,URINE NEGATIVE (Neg)
[2021-01-12 16:56] LABS: UA COLLECTION TYPE CLN CATCH MIDSTREAM
== END 2021-01-12 17:10 | disposition home or self-care (01) ==
LOC: ER 10:46
DX: S81.801A Unspecified open wound, right lower leg, initial encounter (principal); I70.201 Unspecified atherosclerosis of native arteries of extremities, right leg; E78.00 Pure hypercholesterolemia, unspecified; I10 Essential (primary) hypertension; E11.9 Type 2 diabetes mellitus without complications; M19.90 Unspecified osteoarthritis, unspecified site; G89.29 Other chronic pain; Z98.890 Other specified postprocedural states; Z88.8 Allergy status to other drugs, medicaments and biological substances; Z79.82 Long term (current) use of aspirin; Z79.4 Long term (current) use of insulin; Z79.899 Other long term (current) drug therapy; X58.XXXA Exposure to other specified factors, initial encounter; Y93.89 Activity, other specified; Y92.89 Other specified places as the place of occurrence of the external cause; Y99.8 Other external cause status
CPT/HCPCS: 36415; 71045; 73630; 73706; 76937; 80053; 81003; 82948; 83605; 84145; 85025; 85651; 86140; 87040; 93922; 93926; 99285; J7030; Q9967

== ENCOUNTER 2021-01-15 11:35 | Inpatient (IN) | payer MEDICAID ==
[~2021-01-15] VITALS: Ht 182.9 cm; Wt 176.0 kg
[~2021-01-15 11:35] MED LIST changes: +CIPR-202 PO
[2021-01-15] MEDS ORDERED: magnesium hydroxide 30ml (MOM) UD suspension PO PRN (13:00)
[2021-01-15] MEDS ORDERED: morphine 2 MG/ML inj. syringe IV PRN (13:00)
[2021-01-15] MEDS ORDERED: mag hydrox/Alum hydrox/simeth 30ml oral suspension PO PRN (13:00)
[2021-01-15] MEDS ORDERED: metroNIDAZOLE 500mg tablet PO ONE (13:00)
[2021-01-15] MEDS ORDERED: ondansetron/PF 4mg/2ml inj IV PRN (13:00)
[2021-01-15] MEDS ORDERED: acetaminophen 325mg tablet PO PRN (13:00)
[2021-01-15] MEDS ORDERED: LISI10TA27 PO (14:05)
[2021-01-15] MEDS ORDERED: ASPI-1397 PO (14:05)
[2021-01-15] MEDS ORDERED: SIMV-42 PO (14:05)
[2021-01-15] MEDS ORDERED: ARIP20TA4 PO (14:05)
[2021-01-15] MEDS ORDERED: FERR325T29 PO (14:05)
[2021-01-15] MEDS ORDERED: INSU200I SQ (14:05)
[2021-01-15] MEDS ORDERED: CLON-568 PO (14:05)
[2021-01-15] MEDS ORDERED: NABU-139 PO (14:05)
[2021-01-15] MEDS ORDERED: CETI10TA14 PO (14:05)
[2021-01-15] MEDS ORDERED: METF750T46 PO (14:05)
[2021-01-15] MEDS ORDERED: ALEN70TA37 PO (14:05)
[2021-01-15] MEDS ORDERED: DULO30CA52 PO (14:05)
[2021-01-15] MEDS ORDERED: vancomycin/NS 1 GM ADD-VANTAGE 250 ML IV ONE (14:20)
[2021-01-15] MEDS ORDERED: clonazePAM 1mg tablet PO PRN (14:20)
[2021-01-15] MEDS: normal saline 1000ml 1,000 ML IV SCH (15:32)
[2021-01-15 15:36] LABS: BASOPHILS % (AUTO) 0.6 % (0-1); EOSINOPHILS # (AUTO) 0.1 X10'3 (0-0.9); EOSINOPHILS % (AUTO) 2.4 % (0-6); HEMATOCRIT 34.8 % (35.0-45.0); HEMOGLOBIN 11.2 g/dl (12.0-16.0); LYMPHOCYTES # (AUTO) 0.8 X10'3 (1.1-4.8); LYMPHOCYTES % (AUTO) 17.3 % (21-51); MEAN CORPUSCULAR HEMOGLOBIN 26.2 PG (27.0-31.0); MEAN CORPUSCULAR HGB CONC 32.1 g/dL (33.0-36.5); MEAN CORPUSCULAR VOLUME 81.4 FL (78-98); MEAN PLATELET VOLUME 9.4 FL (7.4-10.4); MONOCYTES # (AUTO) 0.4 X10'3 (0-0.9); MONOCYTES % (AUTO) 7.5 % (2-12); NEUTROPHILS # (AUTO) 3.5 X10'3 (1.8-7.7); NEUTROPHILS % (AUTO) 72.2 % (42-75); PLATELET COUNT 126 X10'3 (140-440); RED BLOOD COUNT 4.27 X10'6 (4.20-5.60); RED CELL DISTRIBUTION WIDTH 15.3 % (11.5-14.5); WHITE BLOOD COUNT 4.9 X10'3 (4.5-11.0)
[2021-01-15 15:53] LABS: ALANINE AMINOTRANSFERASE 17 U/L (12-78); ALBUMIN 3.1 G/DL (3.4-5.0); ALBUMIN/GLOBULIN RATIO 0.9 (1.1-1.5); ALKALINE PHOSPHATASE 80 IU/L (46-116); ANION GAP 7 (8-16); ASPARTATE AMINO TRANSFERASE 17 U/L (10-37); BILIRUBIN,TOTAL 0.3 MG/DL (0.1-1.0); BLOOD UREA NITROGEN 13 MG/DL (7-18); BUN/CREATININE RATIO 12.7 (6.6-38.0); CALCIUM 8.6 MG/DL (8.5-10.1); CHLORIDE 105 MMOL/L (99-107); CREATININE 1.02 MG/DL (0.40-0.90); GLUCOSE 144 MG/DL (70-104); POTASSIUM 4.2 MMOL/L (3.5-5.1); SODIUM 140 MMOL/L (135-145); TOTAL CARBON DIOXIDE 28.3 MMOL/L (24-32); TOTAL PROTEIN 6.4 G/DL (6.4-8.2); eGFR 55 ML/MIN
--- NOTE | 2021-01-15 16:26 | NUR ---
PAGER ID: [phone] MESSAGE: Mercedes/Kari surg [id number]. Patient in room 352 has a give of 10 units of Humalog, should I continue or go with protocol?
[2021-01-15] MEDS ORDERED: insulin Lispro (HumaLOG) vial - multi-dose SQ SCH (17:00)
[2021-01-15] MEDS ORDERED: glucagon, human recombinant 1mg kit SUBCUT PRN (18:00)
[2021-01-15] MEDS ORDERED: dextrose 50%-water 50ml dispensing syringe IV PRN ×2 (18:00)
[2021-01-15] MEDS ORDERED: MESSAGE TO PHARMACY PO ONE (18:00)
[2021-01-15] MEDS ORDERED: dextrose ORAL solution 15 GM/59 ML bottle PO PRN ×2 (18:00)
--- NOTE | 2021-01-15 18:05 | NUR ---
patient seen by Dr powell. placed on insulin protocol.. daughter present . will be NPO after MIDNIGHT FOR ANGIOPLASTY IN AM.
--- NOTE | 2021-01-15 18:05 | NUR ---
Patient in room [facility]. I have received report from CIERA Cleaning and had the opportunity to ask questions and assume patient care. Patient has been oriented to room, vitals stable, will continue to monitor
--- NOTE | 2021-01-15 18:14 | NUR ---
Problems reprioritized. Patient report given, questions answered & plan of care reviewed with CIERA Toney.
--- NOTE | 2021-01-15 18:26 | NUR ---
dressing to right heel CDI, pictures had been taken in wound clinic prior to admission to floor.
[2021-01-15] MEDS: morphine 2 MG/ML inj. syringe IV PRN ×2 (18:40→23:30)
[2021-01-15 20:00] VITALS: BP 158/73
[2021-01-15] MEDS ORDERED: atorvastatin 20mg tablet PO SCH (21:00)
[2021-01-15] MEDS: insulin glargine (Lantus) pen - multi-dose SQ SCH (21:00)
[2021-01-15] MEDS: busPIRone 15mg tablet PO SCH (21:34)
[2021-01-15] MEDS: metroNIDAZOLE 500mg tablet PO SCH (21:34)
[2021-01-15] MEDS: gabapentin 300mg capsule PO SCH (21:34)
[2021-01-15] MEDS: duloxetine 30mg CAPSULE.DR PO SCH (21:34)
[2021-01-15] MEDS: enoxaparin 30mg/0.3ml syringe SQ SCH (21:35)
[2021-01-15] MEDS: atorvastatin 10mg tablet PO SCH (21:38)
[2021-01-15] MEDS: vancomycin/NS 1 GM ADD-VANTAGE 250 ML IV SCH (21:57)
[2021-01-15] MEDS: Melatonin 3mg tablet PO PRN (23:28)
[2021-01-16] VITALS: BP 120/58
[2021-01-16] MEDS: normal saline 1000ml 1,000 ML IV SCH ×4 (01:45→19:00)
[2021-01-16] MEDS: morphine 2 MG/ML inj. syringe IV PRN ×4 (04:42→19:51)
[2021-01-16] MEDS: vancomycin/NS 1 GM ADD-VANTAGE 250 ML IV SCH ×3 (05:38→21:53)
--- NOTE | 2021-01-16 06:48 | NUR ---
Problems reprioritized. Patient report given, questions answered & plan of care reviewed with CINTHYA. Addendum: 01/16/21 at 0648 by Teodoro Davis RN Amended: Links added.
--- NOTE | 2021-01-16 06:52 | NUR ---
Patient in room [facility]. I have received report from CIERA Toney and had the opportunity to ask questions and assume patient care.
[2021-01-16] MEDS: aspirin 81mg tablet.DR PO SCH (07:06)
[2021-01-16 07:08] LABS: BASOPHILS % (AUTO) 0.6 % (0-1); EOSINOPHILS # (AUTO) 0.1 X10'3 (0-0.9); EOSINOPHILS % (AUTO) 3.5 % (0-6); HEMATOCRIT 31.3 % (35.0-45.0); HEMOGLOBIN 10.2 g/dl (12.0-16.0); LYMPHOCYTES # (AUTO) 0.7 X10'3 (1.1-4.8); LYMPHOCYTES % (AUTO) 22.1 % (21-51); MEAN CORPUSCULAR HEMOGLOBIN 26.7 PG (27.0-31.0); MEAN CORPUSCULAR HGB CONC 32.6 g/dL (33.0-36.5); MEAN CORPUSCULAR VOLUME 81.8 FL (78-98); MEAN PLATELET VOLUME 9.3 FL (7.4-10.4); MONOCYTES # (AUTO) 0.3 X10'3 (0-0.9); MONOCYTES % (AUTO) 8.6 % (2-12); NEUTROPHILS # (AUTO) 2.1 X10'3 (1.8-7.7); NEUTROPHILS % (AUTO) 65.2 % (42-75); PLATELET COUNT 112 X10'3 (140-440); RED BLOOD COUNT 3.83 X10'6 (4.20-5.60); RED CELL DISTRIBUTION WIDTH 14.8 % (11.5-14.5); WHITE BLOOD COUNT 3.3 X10'3 (4.5-11.0)
[2021-01-16 07:36] LABS: ALBUMIN 2.7 G/DL (3.4-5.0); ANION GAP 6 (8-16); BLOOD UREA NITROGEN 12 MG/DL (7-18); BUN/CREATININE RATIO 12.2 (6.6-38.0); CALCIUM 8.5 MG/DL (8.5-10.1); CHLORIDE 109 MMOL/L (99-107); CREATININE 0.98 MG/DL (0.40-0.90); GLUCOSE 99 MG/DL (70-104); POTASSIUM 4.2 MMOL/L (3.5-5.1); SODIUM 143 MMOL/L (135-145); eGFR 58 ML/MIN
[2021-01-16 08:00] VITALS: BP 120/62
[2021-01-16] MEDS: enoxaparin 30mg/0.3ml syringe SQ SCH ×3 (08:00→21:49)
[2021-01-16] MEDS: cetirizine 10mg tablet PO SCH (08:33)
[2021-01-16] MEDS: duloxetine 30mg CAPSULE.DR PO SCH ×2 (08:33→21:44)
[2021-01-16] MEDS: busPIRone 15mg tablet PO SCH ×2 (08:34→21:44)
[2021-01-16] MEDS: metroNIDAZOLE 500mg tablet PO SCH ×2 (08:34→21:45)
[2021-01-16] MEDS: ARIPIPRAZOLE 10 MG TABLET PO SCH (08:34)
[2021-01-16] MEDS: ezetimibe 10mg tablet PO SCH (08:34)
[2021-01-16] MEDS: ferrous sulfate 325mg tablet PO SCH (08:38)
[2021-01-16] MEDS: fenofibrate 145mg tablet PO SCH (08:38)
[2021-01-16] MEDS: gabapentin 300mg capsule PO SCH ×2 (08:38→21:46)
[2021-01-16] MEDS: pantoprazole 40mg Tablet.DR PO SCH (08:38)
[2021-01-16] MEDS: lisinopril 10 MG tablet PO SCH (08:39)
[2021-01-16] MEDS ORDERED: midazolam 1 mg/ML 2ml injection ONE ×3 (09:47→11:35)
[2021-01-16] MEDS ORDERED: LIDOcaine 1%/PF 5ML 10 MG/ML VIAL ONE (09:47)
[2021-01-16] MEDS ORDERED: iohexol 300mg/ml 100ml inj. ONE (09:48)
[2021-01-16] MEDS ORDERED: fentaNYL/PF 50MCG/1 ML 2ML syringe ONE ×3 (09:48→11:35)
[2021-01-16] MEDS ORDERED: heparin 1,000 UNITS/NS 500ml 500 ML ONE (09:48)
--- NOTE | 2021-01-16 10:14 | NUR ---
Pt to IR via bed.
[2021-01-16] MEDS ORDERED: hydrALAZINE 20mg/ml inj. IV ONE (10:39)
--- NOTE | 2021-01-16 12:29 | NUR ---
DM consult: Pt with A1c 7.4%, admit with nonhealing wound on right foot. Attempted visit with pt at bedside however pt out of room to IR. Written DM and protein educations left at patient's bedside with Terry ONS coupon and RD contact information. No wound care consult at this time for wound staging. Per H&P pt with diabetic ulcer with cellulitis and infection of right foot. No nutrition intervention appropriate at this time as pt currently NPO. Pt previously on a heart healthy CHO controlled diet documented with 50% PO intake first meal up to 100% PO intake at second meal. [facility] 01/15. Will continue to follow and monitor need for nutrition intervention with diet advancement. Recommendations: 1) Advance to CHO controlled diet as medically indicated 2) Monitor need for ONS/additional protein with diet advancement 3) Bowel care per rx 4) Scaled weights per rx Addendum: 01/16/21 at [address] Amended: Links added.
[2021-01-16 13:25] VITALS: BP 126/67
[2021-01-16] MEDS ORDERED: VANCOMYCIN LEVEL IV ONE (13:30)
[2021-01-16] MEDS ORDERED: HYDROcodone/acetaminophen 5mg/325mg tablet PO PRN (15:10)
[2021-01-16] MEDS: clopidogrel 75mg tablet PO SCH (16:11)
[2021-01-16] MEDS: HYDROcodone/acetaminophen 10/325mg tab PO PRN ×2 (16:58→22:05)
[2021-01-16 18:30] VITALS: BP 142/80
--- NOTE | 2021-01-16 18:30 | NUR ---
Patient in room [facility]. I have received report from Simin VANG and Aubree VANG and had the opportunity to ask questions and assume patient care.
--- NOTE | 2021-01-16 18:36 | NUR ---
Problems reprioritized. Patient report given, questions answered & plan of care reviewed with CIERA Monahan.
[2021-01-16] MEDS: atorvastatin 10mg tablet PO SCH (21:44)
[2021-01-16] MEDS: Melatonin 3mg tablet PO PRN (22:05)
[2021-01-16] MEDS: insulin Lispro (HumaLOG) vial - multi-dose SQ SCH (22:14)
[2021-01-16] MEDS: insulin glargine (Lantus) pen - multi-dose SQ SCH (22:15)
[2021-01-16 23:30] VITALS: BP 150/66
[2021-01-17] MEDS: morphine 2 MG/ML inj. syringe IV PRN ×5 (00:59→22:54)
[2021-01-17] MEDS: normal saline 1000ml 1,000 ML IV SCH ×2 (03:08→05:00)
[2021-01-17] MEDS: vancomycin/NS 1 GM ADD-VANTAGE 250 ML IV SCH (05:28)
[2021-01-17] MEDS: HYDROcodone/acetaminophen 10/325mg tab PO PRN ×2 (05:53→17:46)
[2021-01-17 06:17] LABS: BASOPHILS % (AUTO) 0.3 % (0-1); EOSINOPHILS # (AUTO) 0.1 X10'3 (0-0.9); EOSINOPHILS % (AUTO) 2.8 % (0-6); HEMATOCRIT 33.8 % (35.0-45.0); HEMOGLOBIN 11.1 g/dl (12.0-16.0); LYMPHOCYTES # (AUTO) 0.6 X10'3 (1.1-4.8); LYMPHOCYTES % (AUTO) 17.7 % (21-51); MEAN CORPUSCULAR HEMOGLOBIN 26.8 PG (27.0-31.0); MEAN CORPUSCULAR HGB CONC 32.8 g/dL (33.0-36.5); MEAN CORPUSCULAR VOLUME 81.6 FL (78-98); MEAN PLATELET VOLUME 9.6 FL (7.4-10.4); MONOCYTES # (AUTO) 0.3 X10'3 (0-0.9); MONOCYTES % (AUTO) 8.9 % (2-12); NEUTROPHILS # (AUTO) 2.4 X10'3 (1.8-7.7); NEUTROPHILS % (AUTO) 70.3 % (42-75); PLATELET COUNT 110 X10'3 (140-440); RED BLOOD COUNT 4.15 X10'6 (4.20-5.60); RED CELL DISTRIBUTION WIDTH 14.9 % (11.5-14.5); WHITE BLOOD COUNT 3.5 X10'3 (4.5-11.0)
[2021-01-17 06:19] LABS: ALBUMIN 2.8 G/DL (3.4-5.0); ANION GAP 7 (8-16); BLOOD UREA NITROGEN 11 MG/DL (7-18); BUN/CREATININE RATIO 11.8 (6.6-38.0); CALCIUM 8.4 MG/DL (8.5-10.1); CHLORIDE 107 MMOL/L (99-107); CREATININE 0.93 MG/DL (0.40-0.90); GLUCOSE 125 MG/DL (70-104); POTASSIUM 4.2 MMOL/L (3.5-5.1); SODIUM 143 MMOL/L (135-145); eGFR 61 ML/MIN
--- NOTE | 2021-01-17 06:50 | NUR ---
Problems reprioritized. Patient report given, questions answered & plan of care reviewed with Todd.
[2021-01-17 07:00] VITALS: BP 137/75
--- NOTE | 2021-01-17 07:00 | NUR ---
Patient in room [facility]. I have received report from Taniya VANG and had the opportunity to ask questions and assume patient care.
[2021-01-17] MEDS: cetirizine 10mg tablet PO SCH (08:39)
[2021-01-17] MEDS: metroNIDAZOLE 500mg tablet PO SCH (08:39)
[2021-01-17] MEDS: pantoprazole 40mg Tablet.DR PO SCH (08:39)
[2021-01-17] MEDS: aspirin 81mg tablet.DR PO SCH (08:40)
[2021-01-17] MEDS: lisinopril 10 MG tablet PO SCH (08:40)
[2021-01-17] MEDS: busPIRone 15mg tablet PO SCH ×2 (08:41→20:30)
[2021-01-17] MEDS: clopidogrel 75mg tablet PO SCH (08:41)
[2021-01-17] MEDS: ezetimibe 10mg tablet PO SCH (08:41)
[2021-01-17] MEDS: fenofibrate 145mg tablet PO SCH (08:41)
[2021-01-17] MEDS: ferrous sulfate 325mg tablet PO SCH (08:41)
[2021-01-17] MEDS: duloxetine 30mg CAPSULE.DR PO SCH ×2 (08:42→20:31)
[2021-01-17] MEDS: gabapentin 300mg capsule PO SCH ×2 (08:42→20:30)
[2021-01-17] MEDS: ARIPIPRAZOLE 10 MG TABLET PO SCH (08:42)
[2021-01-17] MEDS: enoxaparin 30mg/0.3ml syringe SQ SCH ×2 (08:44→20:31)
[2021-01-17] MEDS: insulin Lispro (HumaLOG) vial - multi-dose SQ SCH ×2 (08:57→13:37)
[2021-01-17 11:00] VITALS: BP 147/76
[2021-01-17] MEDS: piperacillin/tazo 4.5gm/100ml 100 ML IV SCH (12:30)
--- NOTE | 2021-01-17 18:45 | NUR ---
Patient not in the room at the moment, went to [place] for bone scan
--- NOTE | 2021-01-17 18:58 | NUR ---
Problems reprioritized. Patient report given, questions answered & plan of care reviewed with Shannan John RN.
[2021-01-17 20:00] VITALS: BP 130/55
[2021-01-17] MEDS: atorvastatin 10mg tablet PO SCH (20:30)
[2021-01-17] MEDS: Melatonin 3mg tablet PO PRN (21:32)
[2021-01-17] MEDS: insulin glargine (Lantus) pen - multi-dose SQ SCH (21:37)
[2021-01-18] VITALS: BP 150/66
[2021-01-18] MEDS: piperacillin/tazo 4.5gm/100ml 100 ML IV SCH ×4 (01:29→23:55)
[2021-01-18] MEDS: morphine 2 MG/ML inj. syringe IV PRN ×3 (03:54→18:50)
[2021-01-18 06:16] LABS: ALBUMIN 2.8 G/DL (3.4-5.0); ANION GAP 7 (8-16); BLOOD UREA NITROGEN 11 MG/DL (7-18); BUN/CREATININE RATIO 11.5 (6.6-38.0); CALCIUM 8.6 MG/DL (8.5-10.1); CHLORIDE 104 MMOL/L (99-107); CREATININE 0.96 MG/DL (0.40-0.90); GLUCOSE 157 MG/DL (70-104); POTASSIUM 4.1 MMOL/L (3.5-5.1); SODIUM 141 MMOL/L (135-145); TOTAL CARBON DIOXIDE 30.4 MMOL/L (24-32); eGFR 59 ML/MIN
[2021-01-18 06:21] LABS: BASOPHILS % (AUTO) 0.3 % (0-1); EOSINOPHILS # (AUTO) 0.1 X10'3 (0-0.9); HEMATOCRIT 32.8 % (35.0-45.0); HEMOGLOBIN 10.8 g/dl (12.0-16.0); LYMPHOCYTES # (AUTO) 0.7 X10'3 (1.1-4.8); LYMPHOCYTES % (AUTO) 15.3 % (21-51); MEAN CORPUSCULAR HEMOGLOBIN 26.6 PG (27.0-31.0); MEAN CORPUSCULAR VOLUME 80.8 FL (78-98); MEAN PLATELET VOLUME 9.4 FL (7.4-10.4); MONOCYTES # (AUTO) 0.5 X10'3 (0-0.9); MONOCYTES % (AUTO) 10.8 % (2-12); NEUTROPHILS % (AUTO) 70.6 % (42-75); PLATELET COUNT 105 X10'3 (140-440); RED BLOOD COUNT 4.06 X10'6 (4.20-5.60); RED CELL DISTRIBUTION WIDTH 14.7 % (11.5-14.5); WHITE BLOOD COUNT 4.3 X10'3 (4.5-11.0)
--- NOTE | 2021-01-18 06:30 | NUR ---
Patient in room [facility]. I have received report from Maisha VANG and had the opportunity to ask questions and assume patient care.
[2021-01-18] MEDS: HYDROcodone/acetaminophen 10/325mg tab PO PRN ×2 (06:48→22:00)
--- NOTE | 2021-01-18 06:49 | NUR ---
Problems reprioritized. Patient report given, questions answered & plan of care reviewed with CIERA Rowell.
[2021-01-18 07:00] VITALS: BP 113/50
[2021-01-18] MEDS: cetirizine 10mg tablet PO SCH (08:28)
[2021-01-18] MEDS: clopidogrel 75mg tablet PO SCH (08:29)
[2021-01-18] MEDS: gabapentin 300mg capsule PO SCH ×2 (08:29→19:57)
[2021-01-18] MEDS: duloxetine 30mg CAPSULE.DR PO SCH ×2 (08:30→19:57)
[2021-01-18] MEDS: enoxaparin 30mg/0.3ml syringe SQ SCH ×2 (08:30→19:57)
[2021-01-18] MEDS: aspirin 81mg tablet.DR PO SCH (08:30)
[2021-01-18] MEDS: busPIRone 15mg tablet PO SCH ×2 (08:30→19:57)
[2021-01-18] MEDS: ferrous sulfate 325mg tablet PO SCH (08:30)
[2021-01-18] MEDS: ezetimibe 10mg tablet PO SCH (08:31)
[2021-01-18] MEDS: ARIPIPRAZOLE 10 MG TABLET PO SCH (08:31)
[2021-01-18] MEDS: lisinopril 10 MG tablet PO SCH (08:31)
[2021-01-18] MEDS: fenofibrate 145mg tablet PO SCH (08:32)
[2021-01-18] MEDS: pantoprazole 40mg Tablet.DR PO SCH (08:32)
[2021-01-18] MEDS: insulin Lispro (HumaLOG) vial - multi-dose SQ SCH ×3 (08:47→19:33)
[2021-01-18 11:00] VITALS: BP 151/75
--- NOTE | 2021-01-18 11:12 | NUR ---
5F DUAL LUMEN PICC LINE PLACEMENT INFORMATION: REF: [id number] LOT: [id number] EXP: 06/28/2021
--- NOTE | 2021-01-18 18:03 | NUR ---
Problems reprioritized. Patient report given, questions answered & plan of care reviewed with Shannan VANG.
--- NOTE | 2021-01-18 19:58 | NUR ---
Manually administered 2000 medications. Medications did not save.
[2021-01-18 20:00] VITALS: BP 146/65
[2021-01-18] MEDS: atorvastatin 10mg tablet PO SCH (21:57)
[2021-01-18] MEDS: Melatonin 3mg tablet PO PRN (21:57)
[2021-01-18] MEDS: insulin glargine (Lantus) pen - multi-dose SQ SCH (22:03)
[2021-01-19] VITALS: BP 144/62
[2021-01-19] MEDS: morphine 2 MG/ML inj. syringe IV PRN ×4 (02:19→20:19)
[2021-01-19 05:17] LABS: ALBUMIN 2.8 G/DL (3.4-5.0); ANION GAP 7 (8-16); BLOOD UREA NITROGEN 13 MG/DL (7-18); BUN/CREATININE RATIO 12.9 (6.6-38.0); CALCIUM 8.9 MG/DL (8.5-10.1); CHLORIDE 104 MMOL/L (99-107); CREATININE 1.01 MG/DL (0.40-0.90); GLUCOSE 154 MG/DL (70-104); SODIUM 141 MMOL/L (135-145); TOTAL CARBON DIOXIDE 30.4 MMOL/L (24-32); eGFR 56 ML/MIN
[2021-01-19 05:23] LABS: BASOPHILS % (AUTO) 0.6 % (0-1); EOSINOPHILS # (AUTO) 0.2 X10'3 (0-0.9); EOSINOPHILS % (AUTO) 4.6 % (0-6); HEMATOCRIT 32.1 % (35.0-45.0); HEMOGLOBIN 10.7 g/dl (12.0-16.0); LYMPHOCYTES # (AUTO) 0.6 X10'3 (1.1-4.8); LYMPHOCYTES % (AUTO) 16.5 % (21-51); MEAN CORPUSCULAR HEMOGLOBIN 26.8 PG (27.0-31.0); MEAN CORPUSCULAR HGB CONC 33.4 g/dL (33.0-36.5); MEAN CORPUSCULAR VOLUME 80.3 FL (78-98); MEAN PLATELET VOLUME 9.4 FL (7.4-10.4); MONOCYTES # (AUTO) 0.4 X10'3 (0-0.9); MONOCYTES % (AUTO) 9.4 % (2-12); NEUTROPHILS # (AUTO) 2.6 X10'3 (1.8-7.7); NEUTROPHILS % (AUTO) 68.9 % (42-75); PLATELET COUNT 109 X10'3 (140-440); RED CELL DISTRIBUTION WIDTH 14.6 % (11.5-14.5); WHITE BLOOD COUNT 3.8 X10'3 (4.5-11.0)
--- NOTE | 2021-01-19 06:15 | NUR ---
Problems reprioritized. Patient report given, questions answered & plan of care reviewed with CIERA Rodriguez.
--- NOTE | 2021-01-19 06:18 | NUR ---
Patient in room [facility]. I have received report from CIERA Campbell and had the opportunity to ask questions and assume patient care.
[2021-01-19] MEDS: piperacillin/tazo 4.5gm/100ml 100 ML IV SCH ×2 (07:24→16:07)
[2021-01-19] MEDS: fenofibrate 145mg tablet PO SCH (07:31)
[2021-01-19] MEDS: duloxetine 30mg CAPSULE.DR PO SCH ×2 (07:31→20:18)
[2021-01-19] MEDS: busPIRone 15mg tablet PO SCH ×2 (07:31→20:18)
[2021-01-19] MEDS: cetirizine 10mg tablet PO SCH (07:32)
[2021-01-19] MEDS: gabapentin 300mg capsule PO SCH ×2 (07:32→20:18)
[2021-01-19] MEDS: ezetimibe 10mg tablet PO SCH (07:32)
[2021-01-19] MEDS: clopidogrel 75mg tablet PO SCH (07:34)
[2021-01-19] MEDS: aspirin 81mg tablet.DR PO SCH (07:34)
[2021-01-19] MEDS: lisinopril 10 MG tablet PO SCH (07:35)
[2021-01-19] MEDS: ARIPIPRAZOLE 10 MG TABLET PO SCH (07:36)
[2021-01-19] MEDS: ferrous sulfate 325mg tablet PO SCH (07:36)
[2021-01-19] MEDS: enoxaparin 30mg/0.3ml syringe SQ SCH ×2 (07:47→20:19)
[2021-01-19 08:00] VITALS: BP 129/64
[2021-01-19] MEDS ORDERED: pantoprazole 40mg Tablet.DR PO SCH (08:00)
[2021-01-19] MEDS: insulin Lispro (HumaLOG) vial - multi-dose SQ SCH ×3 (09:04→18:41)
[2021-01-19 11:00] VITALS: BP 125/70
[2021-01-19 18:00] VITALS: BP 125/60
--- NOTE | 2021-01-19 18:20 | NUR ---
Patient in room [facility]. I have received report from Jennifer VANG and had the opportunity to ask questions and assume patient care.
--- NOTE | 2021-01-19 18:20 | NUR ---
Pt discharged to [facility] awaiting for transport at 2030. Problems reprioritized. Patient report given, questions answered & plan of care reviewed with CIERA Ramirez.
--- NOTE | 2021-01-19 19:40 | NUR ---
Problems reprioritized. Patient report given, questions answered & plan of care reviewed with Juve Valencia. Awaiting transportation.
[2021-01-19] MEDS: atorvastatin 10mg tablet PO SCH (20:18)
[2021-01-19] MEDS: insulin glargine (Lantus) pen - multi-dose SQ SCH (20:30)
--- NOTE | 2021-01-19 21:35 | NUR ---
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 will continue to monitor
--- NOTE | 2021-01-19 21:50 | NUR ---
pt left in stable condition, a/ox4. pt left with transportation personnel via van. all belongings accounted for by pt. IV d/c'd cannula intact, PICC line intact.
== END 2021-01-19 21:50 | DRG 181 ==
LOC: SUR 3N 12:57
PROVIDERS: ADMIT Family Medicine; ATTEND Family Medicine
PROC: 047Y34Z Dilation of Lower Artery with Drug-eluting Intraluminal Device, Percutaneous Approach (ICD-10-PCS; principal; 2021-01-16)
PROC: B41G1ZZ Fluoroscopy of Left Lower Extremity Arteries using Low Osmolar Contrast (ICD-10-PCS; 2021-01-16)
PROC: B44GZZZ Ultrasonography of Left Lower Extremity Arteries (ICD-10-PCS; 2021-01-16)
DX: E11.51 Type 2 diabetes mellitus with diabetic peripheral angiopathy without gangrene (principal); E11.42 Type 2 diabetes mellitus with diabetic polyneuropathy; E11.621 Type 2 diabetes mellitus with foot ulcer; L03.115 Cellulitis of right lower limb; E66.01 Morbid (severe) obesity due to excess calories; E11.65 Type 2 diabetes mellitus with hyperglycemia; E78.5 Hyperlipidemia, unspecified; I10 Essential (primary) hypertension; I70.201 Unspecified atherosclerosis of native arteries of extremities, right leg; F41.9 Anxiety disorder, unspecified; K21.9 Gastro-esophageal reflux disease without esophagitis; L97.519 Non-pressure chronic ulcer of other part of right foot with unspecified severity; Z80.0 Family history of malignant neoplasm of digestive organs; Z89.512 Acquired absence of left leg below knee; Z98.84 Bariatric surgery status; Z68.43 Body mass index [BMI] 50.0-59.9, adult
CPT/HCPCS: 36415; 36573; 37226; 76937; 78315; 80048; 80053; 80202; 82948; 85025; 85610; 87081; 97161; 97530; 99152; 99153; A6213; A9503; C1725; C1760; C1769; C1876; C1894; G0378; J0360; J1644; J1650; J1815; J2250; J2270; J2405; J2543; J3010; J3370; J3490; J7030; Q9967

== ENCOUNTER 2024-04-08 15:02 | Observation (INO) | payer MEDICARE, MEDICAID ==
[~2024-04-08] VITALS: Ht 182.9 cm; Wt 147.7 kg
[~2024-04-08 15:02] MED LIST changes: +ALEN70TA37 PO; -ALUM1POW3; +ARIP20TA4 PO; -ARIP5TAB14 PO; +ASPI-1397 PO; +CETI10TA14 PO; -CIPR-202 PO; +CLON-568 PO; +DULO30CA52 PO; +FERR325T29 PO; +INSU200I SQ; +LISI10TA27 PO; -METF-438 PO; +METF750T46 PO; +NABU-139 PO; -OMEP-50 PO; +OMEP20CA16 PO; +SIMV-42 PO
[2024-04-08 16:06] LABS: BASOPHILS % (AUTO) 0.3 % (0-1); EOSINOPHILS # (AUTO) 0.1 X10'3 (0-0.9); EOSINOPHILS % (AUTO) 2.3 % (0-6); HEMATOCRIT 32.1 % (35.0-45.0); HEMOGLOBIN 10.9 g/dl (12.0-16.0); LYMPHOCYTES # (AUTO) 0.9 X10'3 (1.1-4.8); LYMPHOCYTES % (AUTO) 19.5 % (21-51); MEAN CORPUSCULAR HEMOGLOBIN 26.2 PG (27.0-31.0); MEAN CORPUSCULAR VOLUME 77.1 FL (78-98); MEAN PLATELET VOLUME 8.1 FL (7.4-10.4); MONOCYTES # (AUTO) 0.4 X10'3 (0-0.9); MONOCYTES % (AUTO) 8.7 % (2-12); NEUTROPHILS # (AUTO) 3.4 X10'3 (1.8-7.7); NEUTROPHILS % (AUTO) 69.2 % (42-75); PLATELET COUNT 145 X10'3 (140-440); RED BLOOD COUNT 4.16 X10'6 (4.20-5.60); RED CELL DISTRIBUTION WIDTH 15.6 % (11.5-14.5); WHITE BLOOD COUNT 4.9 X10'3 (4.5-11.0)
[2024-04-08 16:18] LABS: APTT 26 SECONDS (22-32); INR 1.1 INR; PROTHROMBIN TIME 11.3 SECONDS (9.0-12.0)
[2024-04-08 16:33] LABS: ALANINE AMINOTRANSFERASE 9 U/L (12-78); ALBUMIN 3.4 G/DL (3.4-5.0); ALKALINE PHOSPHATASE 78 IU/L (46-116); ANION GAP 8 (8-16); ASPARTATE AMINO TRANSFERASE 18 U/L (10-37); BILIRUBIN,TOTAL 0.7 MG/DL (0.1-1.0); BLOOD UREA NITROGEN 7 MG/DL (7-18); BUN/CREATININE RATIO 8.1 (10.0-20.0); C-REACTIVE PROTEIN 2.78 MG/DL (0.0-0.5); CALCIUM 8.8 MG/DL (8.5-10.1); CHLORIDE 89 MMOL/L (99-107); CREATININE 0.86 MG/DL (0.40-0.90); GLUCOSE 103 MG/DL (70-104); POTASSIUM 3.8 MMOL/L (3.5-5.1); SODIUM 126 MMOL/L (135-145); TOTAL PROTEIN 6.7 G/DL (6.4-8.2); eCRCL 75 ML/MIN; eGFR 66 ML/MIN
[2024-04-08] MEDS ORDERED: acetaminophen 325mg tablet PO PRN ×2 (17:35)
[2024-04-08] MEDS ORDERED: magnesium Cl slow-release 64mg tablet PO PRN (17:35)
[2024-04-08] MEDS ORDERED: potassium Cl 20 mEq SR tablet PO PRN ×2 (17:35)
[2024-04-08] MEDS ORDERED: magnesium sulf-water 2g/50mL 50 ML IV PRN (17:35)
[2024-04-08] MEDS ORDERED: ondansetron/PF 4mg/2ml inj IV PRN (17:35)
[2024-04-08] MEDS ORDERED: magnesium sulf-water 4G/100mL 100 ML IV PRN (17:35)
[2024-04-08] MEDS ORDERED: HYDROcodone/acetaminophen 5mg/325mg tablet PO PRN (17:35)
[2024-04-08] MEDS ORDERED: morphine 2 MG/ML inj. syringe IV PRN (17:35)
[2024-04-08] MEDS ORDERED: potassium Cl 40MEQ/1/2NS 520ml 520 ML IV PRN (17:35)
[2024-04-08] MEDS ORDERED: DEXTROSE 15 GM of carb/4 tabs (each vial/BOTTLE has 4 tablets) PO PRN ×2 (18:00)
[2024-04-08] MEDS ORDERED: glucagon, human recombinant 1mg kit SUBCUT PRN (18:00)
[2024-04-08] MEDS ORDERED: dextrose 50%-water 50ml dispensing syringe IV PRN ×2 (18:00)
[2024-04-08] MEDS: doxycycline inj 100 MG in normal saline 100ml IV soln 100 ML IV SCH (18:54)
[2024-04-08] MEDS: normal saline 1000ml 1,000 ML IV SCH (18:55)
[2024-04-08] MEDS: normal saline 500ml IV soln 500 ML IV ONE (18:55)
[2024-04-08] MEDS ORDERED: METH-797 (19:45)
[2024-04-08] MEDS ORDERED: ANAS1TAB10 (19:45)
[2024-04-08] MEDS ORDERED: TIRZ10PE (19:45)
[2024-04-08] MEDS ORDERED: LIDO700A47 TOP (19:45)
[2024-04-08] MEDS ORDERED: NYST15CR36 (19:45)
[2024-04-08] MEDS ORDERED: LISI20TA28 PO (19:45)
[2024-04-08] MEDS ORDERED: temazepam 15mg capsule PO PRN (21:00)
[2024-04-08] MEDS: INSULIN LISPRO 100 UNIT/ML INSULN.PEN MULTI-DOSE SQ SCH (21:00)
[2024-04-08] MEDS: heparin, porcine 5000 units/ml vial SQ SCH (21:22)
[2024-04-08 22:00] VITALS: BP 177/64; PULSE 65; RESP 16; RESP 18; TEMP 97.6; O2SAT 98
[2024-04-08] MEDS ORDERED: clonazePAM 1mg tablet PO PRN (23:05)
[2024-04-08] MEDS ORDERED: non-formulary drug (Alendronate Sodium 1 TAB) PO SCH (23:05)
[2024-04-08] MEDS: HYDROcodone/acetaminophen 10/325mg tab PO PRN (23:28)
[2024-04-08] MEDS: busPIRone 15mg tablet PO SCH (23:29)
[2024-04-08] MEDS: gabapentin 300mg capsule PO SCH (23:30)
[2024-04-08] MEDS: duloxetine 30mg CAPSULE.DR PO SCH (23:30)
[2024-04-08 23:34] VITALS: BP 159/54; PULSE 61
[2024-04-09 07:00] VITALS: BP 164/54; PULSE 69; RESP 18; TEMP 98; O2SAT 98
[2024-04-09 07:56] LABS: ALANINE AMINOTRANSFERASE 19 U/L (12-78); ALBUMIN 3.2 G/DL (3.4-5.0); ALKALINE PHOSPHATASE 69 IU/L (46-116); ANION GAP 6 (8-16); ASPARTATE AMINO TRANSFERASE 21 U/L (10-37); BILIRUBIN,TOTAL 0.5 MG/DL (0.1-1.0); BLOOD UREA NITROGEN 7 MG/DL (7-18); BUN/CREATININE RATIO 10.6 (10.0-20.0); CALCIUM 8.9 MG/DL (8.5-10.1); CHLORIDE 97 MMOL/L (99-107); CREATININE 0.66 MG/DL (0.40-0.90); GLUCOSE 93 MG/DL (70-104); SODIUM 131 MMOL/L (135-145); TOTAL CARBON DIOXIDE 27.9 MMOL/L (24-32); TOTAL PROTEIN 6.3 G/DL (6.4-8.2); eCRCL 98 ML/MIN; eGFR 90 ML/MIN
[2024-04-09 07:59] LABS: POTASSIUM 4.1 MMOL/L (3.5-5.1)
[2024-04-09 08:00] VITALS: RESP 18; O2SAT 98
[2024-04-09] MEDS: aspirin 81mg, enteric-coated 1 TAB TABLET.DR PO SCH (08:38)
[2024-04-09] MEDS: cetirizine 10mg tablet PO SCH (08:38)
[2024-04-09] MEDS: ferrous sulfate 325mg tablet PO SCH (08:38)
[2024-04-09] MEDS: aripiprazole 10MG tablet PO SCH (08:38)
[2024-04-09] MEDS: lisinopril 20mg tablet PO SCH (08:39)
[2024-04-09] MEDS: LIDOcaine 5% patch TP SCH (08:42)
[2024-04-09 09:50] LABS: BASOPHILS % (AUTO) 1.1 % (0-1); EOSINOPHILS # (AUTO) 0.1 X10'3 (0-0.9); EOSINOPHILS % (AUTO) 2.8 % (0-6); HEMATOCRIT 32.9 % (35.0-45.0); HEMOGLOBIN 10.9 g/dl (12.0-16.0); LYMPHOCYTES # (AUTO) 0.7 X10'3 (1.1-4.8); LYMPHOCYTES % (AUTO) 21.5 % (21-51); MEAN CORPUSCULAR HEMOGLOBIN 25.9 PG (27.0-31.0); MEAN CORPUSCULAR HGB CONC 33.1 g/dL (33.0-36.5); MEAN CORPUSCULAR VOLUME 78.4 FL (78-98); MEAN PLATELET VOLUME 8.4 FL (7.4-10.4); MONOCYTES # (AUTO) 0.3 X10'3 (0-0.9); MONOCYTES % (AUTO) 8.6 % (2-12); NEUTROPHILS # (AUTO) 2.1 X10'3 (1.8-7.7); PLATELET COUNT 109 X10'3 (140-440); RED BLOOD COUNT 4.19 X10'6 (4.20-5.60); RED CELL DISTRIBUTION WIDTH 15.3 % (11.5-14.5); WHITE BLOOD COUNT 3.2 X10'3 (4.5-11.0)
[2024-04-09 10:00] VITALS: BP 153/49; PULSE 65; RESP 18; TEMP 97.8; O2SAT 99
[2024-04-09] MEDS: morphine 2 MG/ML inj. syringe IV PRN (10:59)
[2024-04-09 11:59] VITALS: RESP 16
[2024-04-09] MEDS ORDERED: DOXY-243 PO (12:45)
[2024-04-09] MEDS ORDERED: SODI100035 PO (12:47)
[2024-04-09] MEDS ORDERED: SIMVASTATIN 20 MG PO SCH (21:00)
== END 2024-04-09 15:05 | disposition home or self-care (01) ==
LOC: ER 15:02 → INTOOBSV 17:58 → ED HOLD 17:58 → EDBEDREQSVC 21:10 → ORTHO 4S 22:04
PROVIDERS: ADMIT Internal Medicine; ATTEND Internal Medicine
DX: S80.922A Unspecified superficial injury of left lower leg, initial encounter (principal); E11.40 Type 2 diabetes mellitus with diabetic neuropathy, unspecified; E87.1 Hypo-osmolality and hyponatremia; E11.622 Type 2 diabetes mellitus with other skin ulcer; L97.829 Non-pressure chronic ulcer of other part of left lower leg with unspecified severity; I10 Essential (primary) hypertension; E78.00 Pure hypercholesterolemia, unspecified; E66.01 Morbid (severe) obesity due to excess calories; F41.9 Anxiety disorder, unspecified; Z79.899 Other long term (current) drug therapy; Z79.4 Long term (current) use of insulin; Z85.038 Personal history of other malignant neoplasm of large intestine; Z89.512 Acquired absence of left leg below knee; Z98.84 Bariatric surgery status; X58.XXXA Exposure to other specified factors, initial encounter; Y93.89 Activity, other specified; Y92.89 Other specified places as the place of occurrence of the external cause; Y99.8 Other external cause status
CPT/HCPCS: 73560; 73700; 80053; 82948; 83605; 84145; 85610; 85730; 86140; 87040; 96361; 96365; 96366; 96372; 96375; 99291; G0378; 36415; 85025; 85651; 87081; J1644; J1815; J2270; J3490; J7030; J7040

== ENCOUNTER 2025-06-17 13:57 | Outpatient (CLI) | payer MEDICARE, MEDICAID ==
[~2025-06-17 13:57] MED LIST changes: +ANAS1TAB10; -EZET10TA6 PO; -FENO145T38 PO; +INSU100C10 SQ; -INSU100I31 SQ; -INSU200I SQ; +LIDO700A47 TOP; -LISI10TA27 PO; +LISI20TA28 PO; -METF750T46 PO; +METH-797; -NABU-139 PO; +NYST15CR; +SODI100035 PO; +TIRZ10PE; +TIRZ10PE SQ
--- NOTE | 2025-06-17 18:43 | RADIOLOGY REPORT ---
EXAM: CT CT LOWER EXTREMITY INDICATION: CT RIGHT ANKLE W/O CONTRAST TECHNIQUE: Axial images of right ankle and right foot have been obtained along with coronal and sagittal reformatted images. All CT scans at this facility use dose modulation, iterative reconstruction, and/or weight based dosing when appropriate to reduce radiation dose to as low as reasonably achievable. COMPARISON: DI FOOT, COMPLETE (3VW MIN) on DOS: 09/01/24 FINDINGS: BONES: No CT evidence of an acute fracture or aggressive osseous lesion. posterior calcaneal tuberosity spurring. Transversely oriented, complete posterior calcaneal body fracture with intra-articular extension into the posterior subtalar joint. Sequelae of prior injury along the distal anterior inferior tibiofibular ligament of the anterior ankle syndesmosis with osseous bridging and subsequent pseudo articulation. MUSCLES: Severe fatty atrophy of the intrinsic musculature JOINT SPACES: No joint effusion. TENDONS/LIGAMENTS: Intact. OTHER: Surrounding subcutaneous adipose tissue edema. IMPRESSION: 1. Transversely oriented, complete posterior calcaneal body fracture with intra- articular extension into the posterior subtalar joint. 2. Sequelae of prior injury along the distal anterior inferior tibiofibular ligament of the anterior ankle syndesmosis with osseous bridging and subsequent pseudo articulation.
== END 2025-06-17 23:59 | disposition home or self-care (01) ==
LOC: RAD 13:57
PROVIDERS: ATTEND Podiatrist Foot & Ankle Surgery
DX: S92.061A Displaced intraarticular fracture of right calcaneus, initial encounter for closed fracture (principal); M25.374 Other instability, right foot; E11.9 Type 2 diabetes mellitus without complications; M79.671 Pain in right foot; E66.9 Obesity, unspecified; X58.XXXA Exposure to other specified factors, initial encounter; Y93.89 Activity, other specified; Y92.89 Other specified places as the place of occurrence of the external cause; Y99.8 Other external cause status
CPT/HCPCS: 73700